=== PATIENT | female | born 1970 | race Two or more races ===

== ENCOUNTER → 2024-03-29 | Emergency (ER) | payer OTHER ==
[~2024-03-29] VITALS: Ht 157.5 cm; Wt 81.6 kg
[~2024-03-29] MED LIST: CRESTOR40 MG; DEXAMETHASONE SODIUM PHOSPHATE 4 MG/ML VIAL IM ONE; GUAIFENESIN/DEXTROMETHORPHAN 10ML BLIST.PACK PO ONE; KETOROLAC TROMETHAMINE 60 MG VIAL IM ONE; OSEL75CA PO; TUSNEL LIQUID178 ML PO
[2024-03-29 09:43] VITALS: BP 92/59; O2SAT 98
[2024-03-29 10:14] LABS: HEMATOCRIT 37.2 % (36.0-45.00); HEMOGLOBIN 12.9 g/dL (12.0-15.00); MEAN CELL VOLUME 88.7 fL (80.00-100.00); MEAN CORPUSCULAR HEMOGLOBIN 30.8 pg (27.00-32.0); MEAN CORPUSCULAR HGB CONC 34.7 g/dl (32.0-36.0); PLATELET COUNT 263 K/uL (150-450); RED CELL DISTRIBUTION WIDTH 12.6 % (11.5-14.5)
== END | disposition home or self-care (01) ==
LOC: ER 08:53
PROVIDERS: General Practice
DX: J10.1 Influenza due to other identified influenza virus with other respiratory manifestations (principal); Z20.822 Contact with and (suspected) exposure to COVID-19